=== PATIENT | male | born 1950 | race Caucasian/White ===

== ENCOUNTER 2016-11-11 07:10 | Observation (INO) | payer MEDICARE ==
[~2016-11-11] VITALS: Ht 182.9 cm; Wt 102.2 kg
[~2016-11-11 07:10] MED LIST: AMLO5TAB2 PO; LISI10TA3 PO
[2016-11-11] MEDS ORDERED: GENTAMICIN SULFATE 80 MG/2 ML VIAL ONE (07:22)
[2016-11-11] MEDS ORDERED: BUPIVACAINE/EPINEPHRINE 0.25% PF 30 ML VIAL ONE (07:22)
[2016-11-11] MEDS ORDERED: SODIUM CHLOR 0.9% 250 ML INJ 250 ML ONE ×2 (08:05→08:38)
[2016-11-11] MEDS ORDERED: VANCOMYCIN HCL 1000 MG VIAL ONE (08:06)
[2016-11-11 08:15] VITALS: BP 149/77; PULSE 82; RESP 20; TEMP 98.6; O2SAT 98
[2016-11-11] MEDS ORDERED: SODIUM CHLORID 0.9% 500 ML IV SCH (08:30)
[2016-11-11] MEDS: LACTATED RINGER'S 1000 ML IV SCH (08:30)
[2016-11-11] MEDS ORDERED: METOPROLOL TARTRATE 25 MG TAB PO PRN (08:30)
[2016-11-11] MEDS ORDERED: INSULIN HUMAN REGULAR 1,000 UNITS/10 ML VIAL SQ PRN (08:30)
[2016-11-11] MEDS ORDERED: ceFAZolin 2 GM PREMIX 50 ML IV SCH (08:45)
[2016-11-11] MEDS ORDERED: VANCOMYCIN 1000 MG/NS 250 ML (for <70 kg) IV SCH ×2 (08:45)
[2016-11-11] MEDS: CHLORHEXIDINE GLUCONATE 4% SOLN 120 ML BTL TOP SCH (08:45)
[2016-11-11] MEDS ORDERED: GELFOAM SIZE 100 ONE (09:11)
[2016-11-11] MEDS ORDERED: THROMBIN (TOPICAL) 20,000 UNIT SPRAY KIT ONE (09:11)
[2016-11-11] MEDS ORDERED: DEXAMETHASONE SOD PHOS 4 MG/ML VIAL ONE (09:41)
[2016-11-11] MEDS ORDERED: MIDAZOLAM HCL 5 MG/5 ML VIAL ONE (09:41)
[2016-11-11] MEDS ORDERED: FAMOTIDINE 20 MG/2 ML VIAL ONE (09:41)
[2016-11-11] MEDS ORDERED: ePHEDrine/NS 25 MG/5 ML SYR IV ONE (12:00)
[2016-11-11] MEDS ORDERED: ONDANSETRON HCL 4 MG/2 ML VIAL IV PUSH ONE (12:00)
[2016-11-11] MEDS ORDERED: PHENYLEPH/NS 1000 MCG/10 ML SYR IV ONE (12:00)
[2016-11-11] MEDS ORDERED: PROPOFOL 200 MG/20 ML AMP IV ONE (12:00)
[2016-11-11] MEDS ORDERED: LACTATED RINGER'S 1000 ML INJ 1,000 ML IV ONE (12:00)
[2016-11-11] MEDS ORDERED: PHENYLEPHRINE HCL 10 MG/ML VIAL IV ONE (12:00)
[2016-11-11] MEDS: LACTATED RINGER'S 1000 ML INJ 1,000 ML IV SCH (13:35)
--- NOTE | 2016-11-11 13:43 | HHI.PR ---
Immediate Post Op Note Procedure Date: Nov 11, 2016 Pre Op Diagnosis: C3-4 ODC,C4-5 HND,ODC Post Op Diagnosis: Same Surgeon: Nish Nelson MD Manager Channel(s): Angelina Serrano PA-C Procedure: C3-4,C4-5 AIF,ACC,ASI Complications: None Estimated blood loss: 50cc for entire case Anesthesia: General Drains: None Patient to: PACU Patient Condition: Good Implant/Devices: SEE IMPLANT LOG (if applicable) Date/Time of Procedure: SEE SURGICAL CARE RECORD Nish Nelson MD Nov 11, 2016 13:43
[2016-11-11] MEDS ORDERED: Post-op Orders (for Pharmacy) MISC XX ONE (13:45)
[2016-11-11] MEDS ORDERED: ALUMINUM/MAGNESIUM/SIMETH 30 ML CUP PO PRN (13:45)
[2016-11-11] MEDS ORDERED: PROMETHAZINE INJ 25 MG/ML VIAL IM PRN (13:45)
[2016-11-11] MEDS ORDERED: ONDANSETRON HCL 4 MG/2 ML VIAL IV PRN (13:45)
[2016-11-11] MEDS: SODIUM CHLORIDE 0.9% FLUSH 5 ML FLUSH IVF SCH ×2 (13:45→19:45)
[2016-11-11] MEDS ORDERED: SODIUM CHLORIDE 0.9% FLUSH 5 ML FLUSH IVF PRN (13:45)
[2016-11-11] MEDS ORDERED: ACETAMINOPHEN/HYDROcodone 325 MG/5 MG TAB PO PRN (13:45)
[2016-11-11] MEDS ORDERED: fentaNYL CITRATE 250 MCG/5 ML AMP ONE (14:03)
[2016-11-11] MEDS ORDERED: *ONDANSETRON 4 MG VIAL PERIprocedural Use ONLY ONE (14:09)
[2016-11-11] MEDS ORDERED: *morphine SULFATE 8 MG/ML PERIprocedure ONLY ONE ×3 (14:11→14:31)
[2016-11-11] MEDS ORDERED: *HYDROmorphone PF 1 MG VIAL PERIprocedural Use ONLY ONE (14:43)
--- NOTE | 2016-11-11 15:08 | MP ---
cc: RHYS LUTHER M.D., MICHAEL MD GILLESPY, ALBERT DATE OF SURGERY: 11/11/2016 PREOPERATIVE DIAGNOSIS: 1. 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 2. C4-5 osteophyte disk complex, herniated nucleus pulposus, bilateral foraminal stenosis. 3. His cervical spine degenerative disease osteoarthritis. 4. Bilateral cervical radiculitis. PROCEDURE: C3-4, C4-5 anterior interbody fusion; C3-4, C4-5 spinet ACC anterior cervical cage; C3-C5 spinet Rauscher anterior spinal rotation. SURGEON Meagan Nelson MD BRIMMING MACHINE OPERATOR: EDITH Sage SPECIMENS NONE. ESTIMATED BLOOD LOSS: Blood loss 50 cc for entire case. COMPLICATIONS None ANESTHESIA General DRAINS: drain none. CONDITIONS: Condition stable PLAN OF ACTIVITY: The plan of activity is per orders. PROCEDURE Dr. Guru Nelson and myself were co-surgeons on this surgical procedure. Dr. Guru Nelson performed the neuro decompressive portion of the procedure which was a C3-4, C4-5 anterior cervical disk and diskectomy anterior decompression, and foraminotomies and left anterior crest bone grafting. I was not present for his portion of the procedure. I preformed the orthopedic stabilization and fusion of the procedure. My physical therapy assistant EDITH Sage was present for entire surgical case. She was medically necessary for entire case because of the complexity case and to facilitate the performance of the procedure. The ORNAMENTAL IRONWORKER HELPER at back table did not have a skill set for this case to manipulate the instruments e.g. the multiple different soft tissue tractors, trial implants and permanent implants. The patient was operating room had satisfactory general trache anesthesia by the part of Anesthesia. Dr. Guru Nelson preformed the right transverse anterior cervical spine exposure to the cervical spine. Using operative microscope performed a C3-4, C4-5 anterior cervical diskectomy anterior decompression using operative microscope and also left anterior crest bone grafting. I then performed the remaining portion of surgical procedure. The patient underwent a 6117 preparation for fusion at C4-5. Hyaline cartilage endplate were removed using angled curettes and burs a 6 10 x 12 ACC cage placed interspace. Under fluoroscopic guidance anterior iliac crest bone grafting was used for interbody fusion. The end plate at C3-4 was prepared for fusion. The hyaline cartilage endplate was removed using angled curettes, burs. A 5, 10 x 12 ACC cage was placed in the interspace. The anterior crest bone graft was using interbody fusion. Anterior osteophytes were removed using different types of rongeurs and bur. A 43-mm length plate was used for anterior spinal fixation. Each screw was drilled. Each screw was 14 mm in length and 4.0 mm in diameter and fixed angle screws. Each screw was drilled screws were inserted. Each screw was appropriately locked to the plate. Intraoperative fluoroscopy AP lateral plane confirmed satisfactory bone graft at C3-4, C4-5, satisfactory position ACC cages at C3-4, C4-5 and satisfactory position anterior spinal instrumentation. After adequate position of the anterior body fusion at the C3-4, C4-5 satisfactory sedation as ACC cages at C3-4, C4-5 and satisfactory fixation of spine Rauscher anterior spinal instrumentation from C3-C5. The wound was irrigated with copious amounts of sterile saline antibiotic solution. The wound itself was dry. The wound was closed in multiple layers using 3-0 Vicryl. Skin approximated with running subcuticular 4-0 Vicryl sutures. Dermabond placed over this skin incisions. Sterile dressing were applied. The patient tolerated the procedure well and returned to Recovery Room in stable and satisfactory condition. MD BRET Cartagena/luis /1:35 PM /2:47 PM
[2016-11-11 16:00] VITALS: BP 115/71; PULSE 94; RESP 19; TEMP 97.1; O2SAT 96
--- NOTE | 2016-11-11 16:41 | RADRPT ---
EXAM DATE/TIME: 11/11/2016 13:04 CORRECTION Corrected on: November 16, 2016; [facility] COMPARISON: No previous studies available for comparison. INDICATIONS : C3-4, C4-5 Anterior cervical disc fusion. MEDICAL HISTORY : Hypertension. Myocardial infarction. SURGICAL HISTORY : CABG. Carotid stent. ENCOUNTER: Initial ACUITY: 1 day PAIN SCORE: Non-responsive. LOCATION: Cervical spine. FINDINGS: Anterior and lateral views in the operating room show evidence of anterior discectomy and fusion proc edure with interbody and anterior instrumentation at C3/C4 and C4/C5. Alignment is normal. Hardware i ntact. No acute complication is demonstrated. CONCLUSION: Expected radiographic appearance discectomy and fusion procedure at C3/C4 and C4/C5 in normal alignme nt. Mack Fuentes MD on November 11, 2016 at 16:39 Board Certified Radiologist. This report was verified electronically. Félix Valverde MD on November 16, 2016 at 16:48 Board Certified Radiologist. This report was verified electronically.
[2016-11-11] MEDS: ACETAMINOPHEN/HYDROcodone 325 MG/5 MG TAB PO PRN (17:19)
[2016-11-11] MEDS: MORPHINE SULFATE 8 MG/ML INJ IV PUSH PRN ×2 (18:28→22:37)
[2016-11-11 20:25] VITALS: BP 140/56; PULSE 98; RESP 17; TEMP 96.3; O2SAT 94
[2016-11-11] MEDS ORDERED: ZOLPIDEM TARTRATE 5 MG TAB PO PRN (21:00)
[2016-11-12] MEDS: ACETAMINOPHEN/HYDROcodone 325 MG/5 MG TAB PO PRN ×2 (00:17→05:59)
[2016-11-12] MEDS: LACTATED RINGER'S 1000 ML INJ 1,000 ML IV SCH (00:17)
[2016-11-12 00:20] VITALS: BP 139/85; PULSE 97; RESP 17; TEMP 98; O2SAT 94
[2016-11-12 04:25] VITALS: BP 131/74; PULSE 69; RESP 17; TEMP 97.6; O2SAT 93
[2016-11-12] MEDS ORDERED: NORC5TAB PO (07:00)
--- NOTE | 2016-11-12 07:10 | PD.ORT.PN ---
Subjective Subjective Remarks pt states neck and arm pain improved does state he had trouble sleeping no SOB, no chest pain Objective Vitals Vital Signs Date Time Temp Pulse Resp B/P Pulse Ox O2 Delivery O2 Flow Rate FiO2 11/12/16 04:25 97.6 69 17 131/74 93 11/12/16 00:20 98.0 97 17 139/85 94 11/11/16 20:25 96.3 98 17 140/56 94 11/11/16 16:00 97.1 94 19 115/71 96 11/11/16 15:00 94 14 126/73 96 Nasal Cannula 3 11/11/16 14:45 93 12 133/78 96 Nasal Cannula 3 11/11/16 14:15 92 12 168/73 95 Nasal Cannula 3 11/11/16 14:00 89 12 152/86 97 Nasal Cannula 3 11/11/16 13:46 97.8 90 14 153/84 97 Simple Mask 10 11/11/16 08:15 98.6 82 20 149/77 98 I/O 11/11/16 11/11/16 11/11/16 11/12/16 11/12/16 11/12/16 07:00 15:00 23:00 07:00 15:00 23:00 Intake Total 1200 ml 240 ml 130 ml Output Total 50 ml Balance 1150 ml 240 ml 130 ml Intake Oral 240 ml IV Total 130 ml Other 1200 ml Output Estimated Blood Loss 50 ml # Voids 1 # Bowel Movements 0 Objective Remarks also seen by Dr. Nish Nelson Kotlik collar in place dressing dry and intact motor +5/5 to UE Assessment & Plan Assessment and Plan POD #1 s/p C3-5 ACDF [place] collar x 4 weeks counseled on no smoking, no overhead lifting and no NSAIDs discharge home today orthopedically stable norco rx in chart Angelina Serrano Nov 12, 2016 07:10
[2016-11-12 08:00] VITALS: BP 121/71; PULSE 71; RESP 20; TEMP 97.8; O2SAT 94
[2016-11-12 08:20] VITALS: O2SAT 94
--- NOTE | 2016-11-12 08:21 | PD.OP ---
cc: Nish Nelson MD; Guru Nelson MD Operative Report Date of Surgery: Nov 11, 2016 Preoperative Diagnosis: Osteophyte disc complex, C3 4. Osteophyte disc complex, C4 5. Cervical spinal stenosis. Cervical radiculopathy, left greater than right Postoperative Diagnosis: Same Procedure: Anterior cervical discectomy decompression with bilateral foraminotomy, C3 4. Anterior cervical discectomy decompression with bilateral foraminotomies, C4 5. Left anterior iliac crest bone graft Anesthesia: Gen. Surgeon: Guru Nelson Casting Associate(s): GEETA Wilkinson Operation and Findings: EBL: 50 cc INDICATIONS: Patient is a 66-year-old male with significant neck and arm pain. Studies shows evidence of significant spinal stenosis with osteophyte disc complexes at the above levels. Despite conservative care, the patient continued be painful and symptomatically. He presents for surgical treatment NOTE: Una Wilkinson PA-C was present for the entire surgical procedure as my first press operator. In my medical opinion her skill and care was necessary for proper management of this patient PROCEDURE: The patient was brought to the operating room and anesthetized in the supine position. This patient was positioned supine on the radiolucent table. All pressure points were protected in the anterior cervical spine and iliac crest was scrubbed with alcohol followed by Hibiclens followed by ChloraPrep. A timeout was done and antibiotics were given within 1 hour time window. Lateral radiographic images were used identifying the proper level. A right anterior incision was made in line with skin creases. The platysma was opened in line with the incision. Deep dissection continued in the interval between the carotid sheath and the esophagus. The longus-coli muscles were lifted on both sides and retractors were positioned allowing good exposure. Lateral radiographic images were used to identify the proper level. [place] style interosseous pins were placed at C3 and C4 allowing exposure to that level. The microscope was rolled into the field. A total discectomy was accomplished and posterior osteophytes were removed. The posterior longitudinal ligament and annulus was taken down. Bilateral foraminotomies were accomplished. The endplates were squared up anticipating later bone grafting. A blunt probe could be placed out each foramen without evidence of nerve root compromise. The C3 pin was placed down to C5. An anterior exposure was accomplished. We performed a total discectomy with excision of the posterior annulus and posterior longitudinal ligament. Bilateral foraminotomies were accomplished. Osteophytes were removed. The endplates were squared up anticipating later bone grafting. A blunt probe could be placed out each foramen without evidence of nerve root compromise. The left iliac crest was approached. A small stab incision was made allowing percutaneous access to the anterior iliac crest. Multiple cores of cancellous bone were harvested and taken to the back table to be used for later bone grafting. The wound was irrigated anesthetized and closed with 4-0 Vicryl followed by Dermabond. The case was turned over to Dr. Nish Nelson for fusion and instrumentation per his dictation. FINDINGS: There was evidence of significant central stenosis at both levels. Advanced foraminal stenosis left greater than right was seen at both levels. No complication was appreciated. NOTE: This surgery was performed in 2 parts. The first part was the neurosurgical decompression performed under the variable power stereo microscope by the undersigned in addition to the bone graft. The second portion of the surgery will be performed by the orthopedic spine component by co -surgeon, Dr. Nish Nelson for the anterior fusion with interbody cage and anterior plate. The skill of 2 surgeons was necessary to perform distinct separate procedural services as dictated above and dictated in the following operative note by Dr. Nish Nelson. Guru Nelson MD Nov 12, 2016 08:21
[2016-11-12] MEDS: LACTATED RINGER'S 1000 ML IV SCH (08:30)
[2016-11-12] MEDS: CHLORHEXIDINE GLUCONATE 4% SOLN 120 ML BTL TOP SCH (08:45)
[2016-11-12] MEDS ORDERED: MULTIVITAMINS/MINERALS THERAPEUTIC TAB PO SCH (09:00)
[2016-11-12] MEDS ORDERED: amLODIPine BESYLATE 5 MG TAB PO SCH (09:00)
[2016-11-12] MEDS ORDERED: LISINOPRIL 10 MG TAB PO SCH (09:00)
[2016-11-12] MEDS: SODIUM CHLORIDE 0.9% FLUSH 5 ML FLUSH IVF SCH (09:28)
== END 2016-11-12 10:42 | disposition home or self-care (01) ==
LOC: HSDC 07:10 → EDSTATUS 11:30 → HSDI 13:37 → N06A 15:29
PROVIDERS: ADMIT Orthopaedic Surgery Orthopaedic Surgery of the Spine; ATTEND Orthopaedic Surgery Orthopaedic Surgery of the Spine
DX: M50.121 Cervical disc disorder at C4-C5 level with radiculopathy (principal); M48.02 Spinal stenosis, cervical region; M47.892 Other spondylosis, cervical region; M25.78 Osteophyte, vertebrae; I25.2 Old myocardial infarction; I10 Essential (primary) hypertension; Z95.1 Presence of aortocoronary bypass graft
CPT/HCPCS: 00600; 20937; 22551; 22552; 22845; 22854; 72040; 76000; 94150; C1713; G0378; J0690; J1100; J1170; J1580; J2250; J2270; J2370; J2405; J3010; J3370; J7050; J7120